=== PATIENT | female | born 1950 | race Asian ===

== ENCOUNTER 2023-08-11 10:25 | Day surgery (SDC) | payer BC, MEDICARE ==
[2023-08-11] VITALS (7 sets, daily range): BP systolic 106–124; BP diastolic 48–63; PULSE 72–86; TEMP 97.5–98.5
[~2023-08-11] VITALS: Ht 167.6 cm; Wt 70.1 kg
[2023-08-11] MEDS ORDERED: PROTONIX 40MG T40 MG PO (11:57)
[2023-08-11] MEDS ORDERED: PRAVACHOL10 MG PO (11:58)
[2023-08-11] MEDS ORDERED: JARDIANCE25 (11:58)
[2023-08-11] MEDS ORDERED: NORVASC 10MG10 MG PO (11:59)
[2023-08-11] MEDS ORDERED: NEURONTIN300 MG/CAP PO (11:59)
[2023-08-11] MEDS ORDERED: MYRBETR50MG PO (12:00)
[2023-08-11] MEDS ORDERED: COZAAR 25MG25 MG/TAB PO (12:00)
[2023-08-11] MEDS ORDERED: CRANBERRY 4001 EACH PO (12:01)
[2023-08-11] MEDS ORDERED: VITAMIN D31000 I1 PO (12:01)
[2023-08-11] MEDS ORDERED: VITAMINC1000TA (12:02)
[2023-08-11] MEDS ORDERED: GEMTESA75 MG PO (12:02)
[2023-08-11] MEDS ORDERED: TRULICITY4.5 MG/0.5 SQ (12:05)
[2023-08-11] MEDS ORDERED: OSCAL 500 TAB500 MG PO (12:05)
[2023-08-11] MEDS ORDERED: SEMGLEE (Y100 UNIT/2 SQ (12:06)
--- NOTE | 2023-08-11 14:40 | NUR ---
PATIENT RETURNED TO ROOM 6 VIA CART, ALERT AND ORIENTED X3. DENIES PAIN, NAUSEA AND SHORTNESS OF BREATH. BREATHING REGULAR AND UNLABORED ON ROOM AIR. SKIN WARM AND DRY. NURSE HANDOFF COMPLETED IN ROOM. SEE CHART FOR VITAL SIGNS. PATIENT HAD WATER AND SALTINES. SEE CHART FOR BLOOD SUGAR RESULT OF 85. CALL LIGHT IN REACH.
[2023-08-11] MEDS ORDERED: PYRIDIUM 100MG100 MG PO (14:41)
--- NOTE | 2023-08-11 15:55 | NUR ---
1542: DISCHARGE TEACHING COMPLETED WITH PRINTED EDUCATION AND INSTRUCTIONS SENT HOME WITH PATIENT. PATIENT INSTRUCTED TO CALL UROLOGY OFFICE AND CONFIRM A FOLLOW UP APPOINTMENT. PATIENT AND FAMILY VERBALIZED UNDERSTANDING. 1549: PATIENT CHANGED INTO NEW BRIEFS AND AMBULATED (WITH WALKER ASSIST AND STEADY GAIT) TO THE RESTROOM. VOIDED WITHOUT DIFFICULTY. PATIENT REPORTED BLOOD TINGED URINE WITH NO CLOTS. 1550: PATIENT DENIES PAIN, NAUSEA AND SHORTNESS OF BREATH. TOLERATING FOOD AND DRINK. IV REMOVED. GAUZE AND COBAN PLACED OVER SITE. 1555: PATIENT DISCHARGED HOME WITH DAUGHTER, CHRISTA, TRANSPORT.
== END 2023-08-11 15:55 | disposition home or self-care (01) ==
LOC: SDCO 10:25
DX: N30.90 Cystitis, unspecified without hematuria (principal); N39.41 Urge incontinence; N32.89 Other specified disorders of bladder; N95.2 Postmenopausal atrophic vaginitis; R31.0 Gross hematuria; Z87.891 Personal history of nicotine dependence
CPT/HCPCS: J0690; J1100; J1885; J2405; J2704; J3010; J7030